=== PATIENT | male | born 1940 | race Caucasian/White ===

== ENCOUNTER 2017-01-13 08:03 | Emergency (ER) | payer MEDICARE, OTHER ==
--- NOTE | ~2017-01-13 | ER ---
PATIENT'S NAME: MARTI KANG [facility] AGE: 76 Y [address] ROOM: [place] [address] LOCATION: ED ADMIT DATE: 01/13/2017 ER/Outpatient Report DISCHARGE DATE: 01/13/2017 FAMILY PHYSICIAN: Physician, Unknown ATTENDING PHYSICIAN: Blaine Adkins Time of Arrival: 0803 hours. Time of Evaluation: 0803 hours. CHIEF COMPLAINT: Low blood pressure at dialysis and increased heart rate. HISTORY OF PRESENT ILLNESS: The patient is a 76-year-old male who presents to the emergency department today with a chief complaint of low blood pressure at dialysis with increased heart rate at dialysis. He reports he feels pretty good. He denies any palpations. No chest pain. No shortness of breath. He does report he has had some nasal congestion and nasal drainage. No fevers or chills. Mild nonproductive cough. Denies any nausea or vomiting. No abdominal pain. No diarrhea or constipation. The pain is currently 0/10 in severity. PAST MEDICAL HISTORY: 1. Chronic kidney disease, on hemodialysis Sunday, , and Sunday. 2. Seizure disorder. 3. Prostate cancer. 4. 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 5. Anemia. 6. Hyperparathyroid. 7. Suprapubic catheterization. PAST SURGICAL HISTORY: Dialysis catheter, prostate biopsy, fistula on the left arm, renal stents, and cataracts. SOCIAL HISTORY: The patient denies any tobacco, alcohol, or illicit drug use. ALLERGIES: NO KNOWN DRUG ALLERGIES. MEDICATIONS: Please see list. PRIMARY CARE DOCTOR: PATIENT'S NAME: MARTI KANG [facility] AGE: 76 Y [address] ROOM: [place] [address] LOCATION: ED ADMIT DATE: 01/13/2017 ER/Outpatient Report DISCHARGE DATE: 01/13/2017 FAMILY PHYSICIAN: Physician, Unknown ATTENDING PHYSICIAN: Blaine Adkins INTELLIGENCE CONSULTANT: REVIEW OF SYSTEMS: All systems are reviewed by myself and negative with the exception of those discussed in HPI and past medical history. PHYSICAL EXAMINATION: VITAL SIGNS: Weight 77.5 kg, blood pressure 106/73, pulse 166, respiratory rate 18, temperature 96.3, and oxygen saturation 98% on room air. GENERAL: The patient is a 76-year-old male, who appears stated age, in no acute distress at this time. HEENT: Normocephalic, atraumatic. Pupils are equal, round, and reactive to light. NECK: Supple. There is no nuchal rigidity. CARDIOVASCULAR: Tachycardic. No murmurs, rubs, or gallops. LUNGS: Clear to auscultation bilaterally. ABDOMEN: Soft, nontender, and nondistended. No rebound, rigidity, or guarding. MUSCULOSKELETAL: The patient moves all 4 extremities. SKIN: Warm and dry. The patient does have a left arm fistula with palpable thrill. LABORATORY DATA AND X-RAYS: Labs and x-rays are obtained. CBC is normal. Coags are normal. CMP is normal. LFTs normal. Magnesium is normal. Cardiac enzymes are normal. ProBNP is 1365, free T4 is normal, and TSH is normal. EKG is obtained at 08:26 a.m. and interpreted by myself, shows supraventricular tachycardia with a rate of 168, normal axis, normal interval. No ST elevation, ST depression, and T-wave inversions. Repeat EKG is interpreted by myself at 08:39 a.m. does show sinus rhythm with a rate of 88, normal axis, normal interval. No ST elevation, ST depression, and T-wave inversions. IMPRESSION: 1. Paroxysmal supraventricular tachycardia. 2. End-stage renal disease, on hemodialysis. 3. Initial visit. EMERGENCY DEPARTMENT COURSE: The patient was brought back to the examination room. Seen and evaluated by myself. IV was established. Laboratory analysis and imaging are obtained as described above. EKG is obtained which does reveal what appears to be PATIENT'S NAME: MARTI KANG [facility] AGE: 76 Y [address] ROOM: [place] [address] LOCATION: [facility] ADMIT DATE: 01/13/2017 ER/Outpatient Report DISCHARGE DATE: 01/13/2017 FAMILY PHYSICIAN: Physician, Unknown ATTENDING PHYSICIAN: Blaine Adkins supraventricular tachycardia. The patient is getting ready, we are preparing to give adenosine. The adenosine is actually hooked up to the IV and as we were about to push the medication, the patient spontaneously converts to sinus rhythm. Repeat EKG is obtained. Laboratory analysis is reviewed with the patient. It is unremarkable. The patient feels good. I have asked that he follows up with knot cutter for re-evaluation. I have discussed to return to care instructions including worsening symptoms or other concerns to return to the emergency department as soon as possible. The patient is agreeable without further questions at this time. DISPOSITION: The patient is discharged to home in good condition. DO KELSIE PETERS/modl /[id number] d: 01/13/17 1441 t: 01/15/17 1600, OUTPATIENT REPORT
[2017-01-13 08:25] LABS: BASOPHIL % 0.4 %; EOSINOPHIL # 0.2 K/uL (0.0-0.5); EOSINOPHIL % 1.6 %; HEMATOCRIT 38.7 % (37.0-53.0); HEMOGLOBIN 12.7 g/dL (11.0-16.0); IMMATURE GRANULOCYTE % 0.4 %; LYMPHOCYTE # 2.2 K/uL (0.8-4.0); LYMPHOCYTE % 22.4 %; MCH 32.5 pg (27.0-34.0); MCHC 32.8 gm/dL (32.0-36.5); MONOCYTE # 1.2 K/uL (0.0-1.0); MONOCYTE % 12.4 %; MPV 11.6 fl (9.4-12.4); NEUTROPHIL # (ANC) 6.2 K/uL (1.4-9.0); NEUTROPHIL % 62.8 %; NRBC % 0 /100WBC (0-0.00); PLATELET COUNT 231 K/uL (150-450); RBC 3.91 M/uL (3.50-5.50); RDW-CV 12.5 % (11.9-14.6); WBC 9.9 K/uL (4.0-11.0)
[2017-01-13 08:33] LABS: INR - (THERAPEUTIC) 0.93 (0.92-1.07); PROTIME 9.8 SECONDS (9.8-11.4); PTT 29 SECONDS (25-32)
[2017-01-13 08:51] LABS: ALBUMIN 3.3 gm/dL (3.5-5.0); ALK PHOS 106 IU/L (33-138); ALT 24 IU/L (12-78); ANION GAP 13.7 (10.0-19.0); AST 17 IU/L (10-40); BLOOD UREA NITROGEN 21 mg/dL (6-24); CALCIUM 8.8 mg/dL (8.5-10.5); CHLORIDE 103 mMol/L (96-110); CO2 29 mMol/L (22-32); CPK 55 IU/L (35-332); CREATININE 2.2 mg/dL (0.6-1.3); ESTIMATED GFR (MDRD EQUATION) 29; POTASSIUM 3.7 mMol/L (3.7-5.1); SODIUM 142 mMol/L (135-145); TOTAL BILIRUBIN 0.4 mg/dL (0.0-1.5); TOTAL PROTEIN 7.1 g/dL (6.0-8.4)
== END 2017-01-13 09:23 | disposition disaster alternative care site (69) ==
LOC: GMED 08:03
PROVIDERS: Emergency Medicine
DX: I47.1 Supraventricular tachycardia (principal); I12.0 Hypertensive chronic kidney disease with stage 5 chronic kidney disease or end stage renal disease; N18.6 End stage renal disease; D63.1 Anemia in chronic kidney disease; Z99.2 Dependence on renal dialysis; G40.909 Epilepsy, unspecified, not intractable, without status epilepticus; E21.3 Hyperparathyroidism, unspecified; Z85.46 Personal history of malignant neoplasm of prostate; Z85.828 Personal history of other malignant neoplasm of skin; Z96.0 Presence of urogenital implants; Z95.5 Presence of coronary angioplasty implant and graft; Z79.899 Other long term (current) drug therapy; Z79.82 Long term (current) use of aspirin
CPT/HCPCS: J0153; J7030

== ENCOUNTER → 2017-01-13 | Outpatient (CLI) | payer MEDICARE, SELFPAY | END | disposition disaster alternative care site (69) | LOC: GAMB 07:38 | DX: I95.9 Hypotension, unspecified (principal); R00.0 Tachycardia, unspecified; Z79.82 Long term (current) use of aspirin; Z79.899 Other long term (current) drug therapy | CPT/HCPCS: A0425; A0427 ==